=== PATIENT | female | born 1950 | race Caucasian/White ===

== ENCOUNTER 2018-04-18 12:15 | Day surgery (SDC) | payer MEDICARE ==
[~2018-04-18] VITALS: Ht 154.9 cm; Wt 72.7 kg
[2018-04-18] MEDS ORDERED: fentaNYL/PF 50MCG/1 ML 2ML syringe ONE (12:58)
[2018-04-18] MEDS ORDERED: MIDAZolam 5mg/5ml vial ONE (12:58)
[2018-04-18] MEDS ORDERED: LIDOcaine Viscous 15ml cup ONE (12:59)
[2018-04-18] MEDS ORDERED: OMEP20CA10 PO (13:29)
[2018-04-18] MEDS ORDERED: MIRT15TA PO (13:30)
[2018-04-18] MEDS ORDERED: CLON-371 PO (13:30)
[2018-04-18 13:34] VITALS: BP 139/76
[2018-04-18 14:33] VITALS: BP 148/78
[2018-04-18 14:43] VITALS: BP 143/72
[2018-04-18 14:53] VITALS: BP 134/71
[2018-04-18 15:03] VITALS: BP 128/75
== END 2018-04-18 15:45 | disposition home or self-care (01) ==
LOC: GI LAB 12:15
PROVIDERS: ATTEND Internal Medicine Gastroenterology
DX: Z12.11 Encounter for screening for malignant neoplasm of colon (principal); K57.30 Diverticulosis of large intestine without perforation or abscess without bleeding; K29.50 Unspecified chronic gastritis without bleeding; K31.89 Other diseases of stomach and duodenum; Z88.2 Allergy status to sulfonamides; Z86.010 Personal history of colon polyps; Z90.49 Acquired absence of other specified parts of digestive tract; Z85.41 Personal history of malignant neoplasm of cervix uteri; Z98.890 Other specified postprocedural states; Z79.899 Other long term (current) drug therapy
CPT/HCPCS: 43239; 45378; 99153; G0500; J2250; J3010; J7030; 99152; A4620